=== PATIENT | female | born 1935 | race Caucasian/White ===

== ENCOUNTER 2017-06-21 18:12 | Inpatient (IN) | payer OTHER ==
[~2017-06-21] VITALS: Ht 167.6 cm; Wt 95.8 kg
[2017-06-21 18:30] VITALS: Ht 167.6 cm; Wt 95.8 kg
[2017-06-21 20:23] LABS: BASOPHIL % 0.1 % (0-2); RED CELL DISTRIBUTION WIDTH 13.8 % (11.5-14.5)
[2017-06-21 20:38] LABS: CALCIUM 8.7 mg/dL (8.5-10.1); CHLORIDE SERUM 97 mmol/L (98-107); GLUCOSE SERUM 117 mg/dL (74-106); SODIUM SERUM 134 mmol/L (136-145)
[2017-06-21 20:45] LABS: ALKALINE PHOSPHATASE 55 U/L (46-116); ALT/SGPT 24 U/L (14-59); AST/SGOT 28 U/L (15-37); BILIRUBIN TOTAL 0.5 mg/dL (0.20-1.00); TOTAL PROTEIN, SERUM 6.5 g/dL (6.4-8.2)
[2017-06-21 20:47] LABS: ALBUMIN 3.3 g/dL (3.4-5.0)
[2017-06-21 21:01] LABS: PLATELET COUNT 123 x10^3mcL (130-400)
[2017-06-21 21:03] LABS: microscopic required? YES; urine erythrocyte 1+ (NEGATIVE)
[2017-06-21 22:41] LABS: T3 TOTAL 0.79 ng/mL
[2017-06-21] MEDS ORDERED: SIMVASTATIN20 M1 PO (23:01)
[2017-06-21] MEDS ORDERED: ARICEPT10 MG PO (23:02)
[2017-06-21] MEDS ORDERED: HYDROCHLOROTHIA25 MG PO (23:02)
[2017-06-21] MEDS ORDERED: LEVOTHYROXIN0.025 M2 PO (23:03)
[2017-06-21 23:07] LABS: MAGNESIUM 1.7 mg/dL (1.8-2.4); PHOSPHOROUS 3.1 mg/dL (2.5-4.9)
[2017-06-21 23:09] VITALS: BP 118/58
[2017-06-21 23:12] LABS: CHOLESTEROL/HDL RATIO 1.9
[2017-06-21 23:15] LABS: FREE T4 0.99 ng/dL (0.76-1.46); FREE THYROXINE INDEX 2.6 ug/dL (1.4-4.5); T4(THYROXINE) 7.8 ug/dL (4.7-13.3)
[2017-06-22 04:40] VITALS: BP 93/63
[2017-06-22 07:00] VITALS: BP 93/63
[2017-06-22 07:03] LABS: BASOPHIL % 0.5 % (0-2); RED CELL DISTRIBUTION WIDTH 14.2 % (11.5-14.5)
[2017-06-22 07:08] LABS: PLATELET COUNT 114 x10^3mcL (130-400)
[2017-06-22 07:10] LABS: CALCIUM 8.3 mg/dL (8.5-10.1); CHLORIDE SERUM 101 mmol/L (98-107); CREATININE SERUM 0.8 mg/dL (0.6-1.0); GLUCOSE SERUM 98 mg/dL (74-106); MAGNESIUM 2.6 mg/dL (1.8-2.4); POTASSIUM SERUM 3.9 mmol/L (3.5-5.1); SODIUM SERUM 137 mmol/L (136-145)
[2017-06-22 08:30] VITALS: BP 107/50
[2017-06-22 12:43] VITALS: BP 106/43
[2017-06-22 18:09] VITALS: BP 105/45
[2017-06-22 21:18] VITALS: BP 120/53
[2017-06-23 05:37] VITALS: BP 116/59
[2017-06-23 07:10] LABS: RED CELL DISTRIBUTION WIDTH 14.4 % (11.5-14.5)
[2017-06-23 07:11] LABS: BASOPHIL % 0 % (0-2); PLATELET COUNT 114 x10^3mcL (130-400)
[2017-06-23 07:54] LABS: CALCIUM 8.4 mg/dL (8.5-10.1); CARBON DIOXIDE 26.3 mmol/L (21-32); CHLORIDE SERUM 106 mmol/L (98-107); CREATININE SERUM 0.8 mg/dL (0.6-1.0); GLUCOSE SERUM 136 mg/dL (74-106); MAGNESIUM 2.1 mg/dL (1.8-2.4); PHOSPHOROUS 3.1 mg/dL (2.5-4.9); POTASSIUM SERUM 4.6 mmol/L (3.5-5.1); SODIUM SERUM 140 mmol/L (136-145)
[2017-06-23] MEDS ORDERED: CULTURELLE DIGE1 CAP PO ×3 (09:38→11:52)
[2017-06-23] MEDS ORDERED: LEVAQUIN750 MG PO ×3 (09:38→11:52)
[2017-06-23] MEDS ORDERED: CLEOCIN HCL300 MG PO ×3 (09:38→11:52)
[2017-06-23] MEDS ORDERED: MEDDP PO ×3 (09:38→11:52)
[2017-06-23 10:09] VITALS: BP 125/60
[2017-06-23 10:57] VITALS: BP 125/60
== END 2017-06-23 12:00 | disposition home health service (06) | DRG 177 ==
LOC: ED 18:12 → DU 21:51
PROVIDERS: Emergency Medicine; Family Medicine
DX: J69.0 Pneumonitis due to inhalation of food and vomit (principal); G93.41 Metabolic encephalopathy; N17.0 Acute kidney failure with tubular necrosis; N39.0 Urinary tract infection, site not specified; E44.1 Mild protein-calorie malnutrition; E87.6 Hypokalemia; G30.9 Alzheimer's disease, unspecified; F02.80 Dementia in other diseases classified elsewhere, unspecified severity, without behavioral disturbance, psychotic disturbance, mood disturbance, and anxiety; E03.9 Hypothyroidism, unspecified; D69.6 Thrombocytopenia, unspecified; E66.9 Obesity, unspecified; Z68.34 Body mass index [BMI] 34.0-34.9, adult; Z98.41 Cataract extraction status, right eye; Z87.891 Personal history of nicotine dependence; Z66 Do not resuscitate
CPT/HCPCS: 83880; 84439; 87804; 94150; 97116-GP; J1956; J2920; J3475; J3480; J3490; J7030; J7620; Q0092

== ENCOUNTER 2019-06-14 16:11 | Emergency (ER) | payer OTHER ==
[~2019-06-14] VITALS: Ht 172.7 cm; Wt 95.3 kg
[~2019-06-14 16:11] MED LIST: ARICEPT10 MG PO; CLEOCIN HCL300 MG PO; CULTURELLE DIGE1 CAP PO; HYDROCHLOROTHIA25 MG PO; LEVAQUIN750 MG PO; LEVOTHYROXIN0.025 M2 PO; MEDDP PO; SIMVASTATIN20 M1 PO
[2019-06-14 16:23] VITALS: Ht 172.7 cm; Wt 95.3 kg
[2019-06-14 17:59] LABS: AMPHETAMINE QUAL UR NONE DETECTED (See below)
[2019-06-14 18:03] LABS: BASOPHIL % 0.7 % (0-2); PLATELET COUNT 155 x10^3mcL (130-400)
[2019-06-14 18:19] LABS: CALCIUM 9.3 mg/dL (8.5-10.1); CARBON DIOXIDE 29.1 mmol/L (21-32); CHLORIDE SERUM 104 mmol/L (98-107); GLUCOSE SERUM 115 mg/dL (74-106); POTASSIUM SERUM 3.7 mmol/L (3.5-5.1); SODIUM SERUM 142 mmol/L (136-145)
[2019-06-14 18:33] LABS: ALBUMIN 3.4 g/dL (3.4-5.0); ALKALINE PHOSPHATASE 69 U/L (46-116); ALT/SGPT 25 U/L (14-59); AST/SGOT 28 U/L (15-37); BILIRUBIN TOTAL 0.5 mg/dL (0.20-1.00); TOTAL PROTEIN, SERUM 6.7 g/dL (6.4-8.2)
[2019-06-15 05:45] VITALS: BP 115/53
== END 2019-06-15 05:45 | disposition short-term general hospital (02) ==
LOC: ED 16:11
PROVIDERS: Emergency Medicine
DX: F03.90 Unspecified dementia, unspecified severity, without behavioral disturbance, psychotic disturbance, mood disturbance, and anxiety (principal); R45.1 Restlessness and agitation; I10 Essential (primary) hypertension; J45.909 Unspecified asthma, uncomplicated; E03.9 Hypothyroidism, unspecified; Z98.890 Other specified postprocedural states; Z88.0 Allergy status to penicillin; Z88.1 Allergy status to other antibiotic agents
CPT/HCPCS: 36415; G0480; J1630; J2060